=== PATIENT | female | born 1945 | race Caucasian/White ===

== ENCOUNTER → 2017-05-26 | Outpatient (CLI) | payer MEDICARE, BC ==
[~2017-05-26] MED LIST: ANTIVERT25 MG PO; APAP500 PO; CALCITRIOL0.5 MCG PO; CENTRUM SILVER1 EAC4 PO; CORAL CALCIUM1 EAC4 PO; KEFLEX500 MG PO; OXYCODONE HCL 55 MG PO; PAXIL 20 MG TAB20 M1 PO; PERCOCET PO; VALIUM5 MG PO; VITAMIN D2000 UNIT PO; XARELTO10 MG PO
== END ==
LOC: M.MRI 15:45
DX: S83.281A Other tear of lateral meniscus, current injury, right knee, initial encounter (principal); S83.011A Lateral subluxation of right patella, initial encounter; M25.461 Effusion, right knee; Z90.710 Acquired absence of both cervix and uterus; X58.XXXA Exposure to other specified factors, initial encounter; Y93.89 Activity, other specified; Y92.89 Other specified places as the place of occurrence of the external cause; Y99.8 Other external cause status

== ENCOUNTER → 2018-07-17 | Outpatient (CLI) | payer MEDICARE, BC ==
--- NOTE | 2018-07-17 13:53 | 2DMMODE ---
[place] [address] 2 D/M-MODE ECHOCARDIOGRAM Name: RIGOBERTO WAGNER Room: [facility]#: [id number] Admission: 07/17/18 Attend Phys: Ace Sotelo II Discharge: Date of : 49 Date of Service: 07/17/18 1352 Report #: [id number] THIS REPORT FOR: //name// APPROVED REPORT Study performed: 07/17/2018 13:08:57 EXAM: Comprehensive 2D, Doppler, and color-flow Echocardiogram Patient Location: Out-Patient BSA: 1.91 HR: 63 bpm BP: 122/75 mmHg Other Information Study Quality: Good Indications Palpitations 2D Dimensions IVSd: 8.40 (7-11mm) LVOT Diam: 19.81 (18-24mm) LVDd: 41.30 mm PWd: 8.40 (7-11mm) Ascending Ao: 28.13 (22-36mm) LVDs: 22.45 (25-40mm) Aortic Root: 24.76 mm Volumes Left Atrial Volume (Systole) LA ESV Index: 17.30 mL/m2 Aortic Valve AoV Peak Eric.: 1.44 m/s AO Peak Gr.: 8.25 mmHg LVOT Max P.00 mmHg AO Mean Gr.: 4.47 mmHg LVOT Mean P.34 mmHg LVOT Max V: 0.87 m/s AO V2 VTI: 29.00 cm LVOT Mean V: 0.52 m/s SANJIV (VTI): 1.99 cm2 LVOT V1 VTI: 18.75 cm Mitral Valve E/A Ratio: 0.98 MV Decel. Time: 225.84 ms MV E Max Eric.: 0.61 m/s MV PHT: 65.49 ms MVA (PHT): 3.36 [place]2 [place] [address] 2 D/M-MODE ECHOCARDIOGRAM Name: RIGOBERTO WAGNER Room: [facility]#: [id number] Admission: 07/17/18 Attend Phys: Ace Sotelo II Discharge: Date of : 49 Date of Service: 07/17/18 1352 Report #: [id number] TDI E/Lateral E': 4.69 E/Medial E': 7.63 Medial E' Eric.: 0.08 m/s Lateral E' Eric.: 0.13 m/s Pulmonary Valve PV Peak Eric.: 0.78 m/s PV Peak Gr.: 2.45 mmHg Tricuspid Valve RAP Estimate: 5.00 mmHg TR Peak Gr.: 20.90 mmHg RVSP: 25.90 mmHg PA Pressure: 25.90 mmHg Left Ventricle The left ventricle is normal size. There is normal LV segmental wall motion. There is normal left ventricular wall thickness. Left ventricular systolic function is normal. The left ventricular ejection fraction is within the normal range. LVEF is 55-60%. The left ventricular diastolic function is normal. Right Ventricle The right ventricle is normal size. The right ventricular systolic function is normal. Atria The left atrium size is normal. The right atrium size is normal. Atrial septal aneurtsm is present. Aortic Valve Mild aortic valve sclerosis. No aortic regurgitation is present. There is no aortic valvular stenosis. Mitral Valve The mitral valve is normal in structure. There is no mitral valve regurgitation noted. No evidence of mitral valve stenosis. Tricuspid Valve The tricuspid valve is normal in structure. Mild tricuspid regurgitation. Pulmonic Valve The pulmonary valve is normal in structure. There is no pulmonic valvular regurgitation[place] [address] 2 D/M-MODE ECHOCARDIOGRAM Name: RIGOBERTO WAGNER Room: [facility]#: [id number] Admission: 07/17/18 Attend Phys: Ace Sotelo II Discharge: Date of : 49 Date of Service: 07/17/18 1352 Report #: [id number] The aortic root is normal in size. IVC is normal in size and collapses >50% with inspiration. Pericardium There is no pericardial effusion. <Conclusion> The left ventricle is normal size. There is normal left ventricular wall thickness. Left ventricular systolic function is normal. The left ventricular ejection fraction is within the normal range. LVEF is 55-60%. The left ventricular diastolic function is normal. The right ventricle is normal size. The left atrium size is normal. Mild aortic valve sclerosis. No aortic regurgitation is present. There is no aortic valvular stenosis. The mitral valve is normal in structure. The tricuspid valve is normal in structure. Mild tricuspid regurgitation. IVC is normal in size and collapses >50% with inspiration. There is no pericardial effusion. There is normal LV segmental wall motion. The right atrium size is normal. Atrial septal aneurtsm is present. <ELECTRONICALLY SIGNED> By: Colt Monae MD, FACC 07/17/18 1352 135 135 Colt Monae MD, FACC /INF
== END ==
LOC: M.CRD 13:00
DX: I08.2 Rheumatic disorders of both aortic and tricuspid valves (principal)